=== PATIENT | female | born 1940 | race Two or more races ===

== ENCOUNTER 2020-03-06 19:16 | Emergency (ER) | payer MEDICARE, OTHER ==
[~2020-03-06] VITALS: Ht 162.6 cm; Wt 54.4 kg
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
--- NOTE | 2020-03-06 19:27 | NUR ---
DR KILGORE PAGED PER DR DAVILA.
--- NOTE | 2020-03-06 19:29 | NUR ---
EMT AT BEDSIDE FOR WOUND CARE
[2020-03-06] MEDS ORDERED: BACITRACIN ZINC OINT PACKET 1 EA PACKET TP ONE (19:30)
[2020-03-06] MEDS ORDERED: TDAP [DIPH/PERTUSSIS/TET] 0.5 ML VIAL IM ONE ×2 (19:30→19:43)
--- NOTE | 2020-03-06 19:47 | NUR ---
[facility] CALLED FOR TRANSPORT TRIP#[id number].
--- NOTE | 2020-03-06 19:48 | NUR ---
AMBULATED TO THE RESTROOM WITH HELP OF EMT
--- NOTE | 2020-03-06 21:08 | NUR ---
[facility] BEFORE MIDNIGHT
--- NOTE | 2020-03-06 22:15 | NUR ---
ambulated to the restroom and back
--- NOTE | 2020-03-06 23:25 | NUR ---
Patient discharged to home in stable condition. Written and verbal after care instructions given. Patient verbalizes understanding of instruction. Pt picked up and transfered back. Report given to transfer EMT.
[2020-03-06 23:27] VITALS: BP 117/68
== END 2020-03-06 23:29 | disposition home or self-care (01) ==
LOC: ER 19:18 → EDBD 19:18 → ER 23:29
DX: T24.212A Burn of second degree of left thigh, initial encounter (principal); K21.9 Gastro-esophageal reflux disease without esophagitis; G62.9 Polyneuropathy, unspecified; Z88.6 Allergy status to analgesic agent; X10.0XXA Contact with hot drinks, initial encounter; Y93.89 Activity, other specified; Y92.89 Other specified places as the place of occurrence of the external cause; Y99.8 Other external cause status
CPT/HCPCS: 90715

== ENCOUNTER 2020-03-15 12:40 | Emergency (ER) | payer MEDICARE, OTHER ==
[~2020-03-15] VITALS: Ht 165.1 cm; Wt 57.6 kg
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
--- NOTE | 2020-03-15 13:05 | NUR ---
URINE SPECIMEN COLLECTED AND SENT TO LAB.
--- NOTE | 2020-03-15 13:13 | NUR ---
ER PHLEB AT BEDSIDE FOR BLOOD DRAW.
--- NOTE | 2020-03-15 13:20 | NUR ---
IV LINE ESTABLISHED BLOOD DRAWN AND SENT TO LAB.
[2020-03-15 13:24] LABS: BASOPHILS # (AUTO) 0.1 /CMM (0.0-0.2); EOSINOPHILS % (AUTO) 0.8 % (0.0-6.0); HEMATOCRIT 36 % (33-45); HEMOGLOBIN 12.2 g/dL (11.5-14.8); LYMPHOCYTES # (AUTO) 1.9 /CMM (0.8-4.8); LYMPHOCYTES % (AUTO) 21.9 % (20.0-44.0); MEAN CORPUSCULAR HGB CONC 34 g/dl (31.0-36.0); MEAN CORPUSCULAR VOLUME 98 fL (82-100); MONOCYTES # (AUTO) 0.8 /CMM (0.1-1.30); MONOCYTES % (AUTO) 9.6 % (2.0-12.0); NEUTROPHILS # (AUTO) 5.7 /CMM (1.8-8.9); NEUTROPHILS % (AUTO) 66.7 % (43.0-81.0); PLATELET COUNT (AUTO) 262 /CMM (150-450); RED BLOOD CELL COUNT(AUTO) 3.73 MIL/uL (4.0-5.2); WHITE BLOOD COUNT (AUTO) 8.5 K/uL (4.3-11.0)
[2020-03-15] MEDS ORDERED: IV NS 0.9% 1,000 ML IV ONE (13:30)
[2020-03-15 13:32] LABS: CALCIUM, SERUM 9.1 mg/dL (8.5-10.1); CARBON DIOXIDE 25 mmol/L (21-32); CHLORIDE 97 mmol/L (98-107); CREATININE 0.5 mg/dL (0.6-1.3); GLUCOSE 93 mg/dL (74-106); POTASSIUM 4.2 mmol/L (3.5-5.1); SODIUM SERUM 133 mmol/L (136-145); UREA NITROGEN, BLOOD 6 mg/dL (7-18)
[2020-03-15 13:35] LABS: MAGNESIUM 2.2 mg/dL (1.8-2.4); PHOSPHORUS 3.7 mg/dL (2.5-4.9)
--- NOTE | 2020-03-15 14:03 | NUR ---
CALLED [facility] SPOKED TO URIEL MATIAS FOR REPORT.
--- NOTE | 2020-03-15 14:07 | NUR ---
[facility] ETA [id number]
--- NOTE | 2020-03-15 14:30 | NUR ---
IV removed. Catheter intact and site benign. Pressure and 4x4 applied to site. No bleeding noted. Patient discharged back to [facility] in stable condition. Written and verbal after care instructions given. Patient verbalizes understanding of instruction.
[2020-03-15 14:39] VITALS: BP 131/72
--- NOTE | 2020-03-15 14:39 | NUR ---
REPORT GIVEN TO EMT FOR PT TRANSFER BACK TO [facility].
== END 2020-03-15 14:40 ==
LOC: ER 12:47
DX: R25.2 Cramp and spasm (principal); K21.9 Gastro-esophageal reflux disease without esophagitis; Z99.3 Dependence on wheelchair; Z88.6 Allergy status to analgesic agent
CPT/HCPCS: 36415; 80048; 83735; 84100; 85025; 96360; 99283; J7030

== ENCOUNTER 2020-05-31 10:07 | Emergency (ER) | payer MEDICAID, MEDICARE, OTHER ==
[~2020-05-31] VITALS: Ht 162.6 cm; Wt 54.5 kg
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
--- NOTE | 2020-05-31 11:09 | NUR ---
CALLED [facility] [phone] ETA IS [phone]
--- NOTE | 2020-05-31 12:09 | NUR ---
Patient discharged to home in stable condition. Written and verbal after care instructions given. Patient verbalizes understanding of instruction. report given to chicken hanger
[2020-05-31 12:11] VITALS: BP 141/88
== END 2020-05-31 12:11 | disposition home or self-care (01) ==
LOC: ER 10:13
DX: E11.40 Type 2 diabetes mellitus with diabetic neuropathy, unspecified (principal); K21.9 Gastro-esophageal reflux disease without esophagitis; Z88.6 Allergy status to analgesic agent; Z91.010 Allergy to peanuts; Z88.8 Allergy status to other drugs, medicaments and biological substances